=== PATIENT | female | born 1985 | race Two or more races ===

== ENCOUNTER 2023-03-24 14:58 | Inpatient (IN) | payer OTHER ==
[~2023-03-24] VITALS: Ht 157.5 cm; Wt 63.5 kg
[2023-03-24] MEDS ORDERED: PRENATAL TABLE1 EAC1 PO (15:26)
== END 2023-03-26 13:33 | disposition home or self-care (01) | DRG 807 ==
LOC: OB/GYN 14:58 → LDR 14:58 → OB/GYN 03-25 00:21
PROVIDERS: ADMIT Obstetrics & Gynecology Maternal & Fetal Medicine; ATTEND Obstetrics & Gynecology Maternal & Fetal Medicine
PROC: 10D07Z6 Extraction of Products of Conception, Vacuum, Via Natural or Artificial Opening (ICD-10-PCS; principal; 2023-03-24)
PROC: 0KQM0ZZ Repair Perineum Muscle, Open Approach (ICD-10-PCS; 2023-03-24)
PROC: 4A1HXCZ Monitoring of Products of Conception, Cardiac Rate, External Approach (ICD-10-PCS; 2023-03-24)
DX: O70.1 Second degree perineal laceration during delivery (principal); Z37.0 Single live birth; Z3A.36 36 weeks gestation of pregnancy; Z20.822 Contact with and (suspected) exposure to COVID-19